=== PATIENT | female | born 1980 | race Caucasian/White ===

== ENCOUNTER 2019-03-22 21:39 | Emergency (ER) | payer OTHER ==
[~2019-03-22] VITALS: Ht 157.4 cm; Wt 96.6 kg
[2019-03-22] MEDS ORDERED: ZITHROMAX250 MG PO (22:26)
== END 2019-03-22 22:40 | disposition home or self-care (01) ==
LOC: ED 21:39
DX: J02.9 Acute pharyngitis, unspecified (principal); R22.1 Localized swelling, mass and lump, neck; Z88.0 Allergy status to penicillin

== ENCOUNTER 2024-07-27 14:51 | Emergency (ER) | payer OTHER ==
[~2024-07-27] VITALS: Ht 157.4 cm; Wt 90.7 kg
[~2024-07-27 14:51] MED LIST: ZITHROMAX250 MG PO
== END 2024-07-27 15:13 | disposition home or self-care (01) ==
LOC: ED 14:51
DX: S91.012D Laceration without foreign body, left ankle, subsequent encounter (principal); Z88.0 Allergy status to penicillin; Z88.1 Allergy status to other antibiotic agents; Z79.899 Other long term (current) drug therapy; X58.XXXD Exposure to other specified factors, subsequent encounter